=== PATIENT | female | born 1980 | race Caucasian/White ===

== ENCOUNTER → 2020-09-13 | Outpatient (CLI) | payer OTHER ==
[~2020-09-13] MED LIST: BARIATRIC MV-I1 EACH PO; LIPITOR10 MG PO; METFORMIN HCL500 M3 PO; VITAMIN D31250 MC1 PO
== END ==
LOC: LAB 09:52 → PAC 11:09
PROVIDERS: ATTEND Student in an Organized Health Care Education/Training Program
DX: Z01.812 Encounter for preprocedural laboratory examination (principal); Z20.822 Contact with and (suspected) exposure to COVID-19

== ENCOUNTER 2020-09-15 06:22 | Observation (INO) | payer OTHER ==
[2020-09-15] VITALS (9 sets, daily range): BP systolic 126–157; BP diastolic 86–96
[~2020-09-15] VITALS: Ht 162.6 cm; Wt 135.6 kg
--- NOTE | ~2020-09-15 | O ---
[facility] [place] [address] [address] OPERATIVE REPORT Name: CHEL BROWN Room #: 150-2 [facility] IN M.R.#: [id number] Admission: 09/15/20 Attend Phys: Geovani Lawrence MD Discharge: Date of : 80 Report #: [id number] THIS REPORT FOR: cc: Julia Anderson MD, Cora A. MD Joseph, Sigi P. MD ~ DOC #: [id number] Geovani Lawrence MD DATE OF SERVICE: 09/15/2020 PREOPERATIVE DIAGNOSES: 1. Morbid obesity. 2. Type 2 diabetes. 3. Hyperlipidemia. POSTOPERATIVE DIAGNOSES: 1. Morbid obesity. 2. Type 2 diabetes. 3. Hyperlipidemia. OPERATIVE PROCEDURE: Laparoscopic vertical sleeve gastrectomy. OPERATING SURGEON: Geovani Lawrence MD SENIOR J2EE DEVELOPER: Brittney. INDICATIONS FOR THE PROCEDURE: The patient is a 40-year-old female who presents with features of morbid obesity. She was noted to have a weight of 303 pounds with a BMI of 53.7 with the above listed comorbidities. The patient was advised laparoscopic vertical sleeve gastrectomy. The patient showed understanding and agreed to proceed. DESCRIPTION OF PROCEDURE: After explaining to the patient in detail and informed consent was obtained, the patient was identified in the preoperative holding area, the patient was transferred to the operating room and was placed in supine position. Sequential compression devices were placed for DVT prophylaxis. Preoperative antibiotics were given. After induction of anesthesia, the abdomen was prepped and draped in a sterile fashion. Through a left upper quadrant 1 cm incision and using Optiview technique, peritoneal cavity was entered and pneumoperitoneum was created. Thereafter, under direct vision, another 5 mm trocar was placed in the left mid abdomen, another 12 mm trocar was placed in the right mid abdomen, another 5 mm trocar was placed in the right subcostal region and through a 1 cm incision in the epigastrium, a Hayden retractor was introduced and the left lobe of the liver was retracted. Upon initial inspection, I did not see any obvious evidence of hiatal hernia, so I started taking down the gastroepiploic vessels using EnSeal. This was [facility] [address] [place] [address] OPERATIVE REPORT Name: CHEL BROWN Room #: 150-2 ADM IN .R.#: [id number] Admission: 09/15/20 Attend Phys: Geovani Lawrence MD Discharge: Date of : 80 Report #: [id number] continued superiorly. The short gastric vessels were taken down. The gastrophrenic ligament was divided and the angle of His was mobilized distally. The gastroepiploic vessels were taken down up to about 4 cm proximal to the pylorus. At this point, a 36-Macedonian ViSiGi tube was inserted into the stomach and stomach was suctioned out. Stomach was then divided in a vertical fashion with the multiple Endo-CHUCK Follett stapler. Two green loads and multiple gold loads were used to divide the stomach in a vertical fashion to create a loose sleeve around the 36-Macedonian bougie. An air leak test was performed by insufflation of the stomach and by irrigation of fluid along the staple line, there was no leak that was noted. Absolute hemostasis was ensured. The orogastric tube was removed. Approximately 10 mL of lidocaine and Marcaine mix was instilled into the left hemidiaphragm. The sleeve gastrectomy specimen and the Hayden retractor was removed. The 12 mm port site incision was closed with 0 Vicryl for the fascia. Skin was closed with 4-0 Monocryl for all the incisions. Dermabond was applied. The patient was stable at the end of the procedure. The patient was woken up from anesthesia and was transferred to the recovery room in stable condition. Estimated blood loss was approximately 5 mL. CONDITION OF THE PATIENT: Stable. FLUIDS GIVEN: Per anesthesia notes. SPECIMEN SENT: Sleeve gastrectomy specimen. COMPLICATIONS: None. ANESTHESIA: General anesthesia. Geovani Lawrence MD SPJ/KDA By: 0813 [id number] Geovani Lawrence MD /nt
[2020-09-15 07:17] LABS: HEMATOCRIT 40.9 % (37.0-47.0); HEMOGLOBIN 13.4 gm/dL (12.0-15.0); MCH 26.2 pg (26.0-34.0); MCHC 32.8 g/dL (28.0-37.0); MCV 79.9 fL (80.0-100.0); RBC 5.11 mil/uL (4.20-5.00); RDW 15.3 % (10.5-14.5); WBC 10.3 thou/uL (4.0-11.0)
[2020-09-15 07:34] LABS: CALCIUM 9.6 mg/dL (8.5-10.1); CREATININE 0.8 mg/dL (0.6-1.0); POTASSIUM 3.6 mmol/L (3.5-5.1)
[2020-09-15 07:40] LABS: ALBUMIN 3.8 g/dL (3.4-5.0); TOTAL BILIRUBIN 0.7 mg/dL (0.2-1.0); TOTAL PROTEIN 7.7 g/dL (6.4-8.2)
--- NOTE | 2020-09-15 08:44 | EKG ---
[place] [address] [facility] [place] [address] ELECTROCARDIOGRAM REPORT Name: CHEL BROWN Room #: 150-2 ADM IN M.R.#: [id number] Admission: 09/15/20 Attend Phys: Geovani Lawrence MD Discharge: Date of : 80 Report #: [id number] [facility] Test Date: 2020-09-15 Test Time: 07:09:24 Pat Name: CHEL STEPHANIE Department: Room: 150 2 Gender: F Roof Fixer: MARIAH : 1980 Requested By: Geovani Lawrence Order Number: [id number] MD: Krishna Gallagher Measurements Intervals [place] Rate: 91 P: 21 VA: 184 QRS: 37 QRSD: 90 T: 1 QT: 354 QTc: 436 Interpretive Statements Sinus rhythm Low voltage, precordial leads Abnormal R-wave progression, early transition No previous ECG available for comparison Electronically Signed On 09-15-2020 8:44:17 CDT by Krishna Gallagher [email or web address] <ELECTRONICALLY SIGNED> By: Krishna Gallagher MD, [facility] 09/15/20 0844 0709 8 Krishna Gallagher MD, FACC /EPI
--- NOTE | 2020-09-15 18:03 | NUR ---
Admit from OR, s/p laparoscpic sleeve gastrectomy today, transferred to room safely. Admission assessment, history and education done; admission forms signed in OR. Vital signs monitored frequently and charted; WNL. On O2 at 2lpm via nasal cannula- post op comfort. On telemetry; no complains and signs of chest pain, crushing sensation and heaviness. Assisted in ADLs. On nothing per orem, pt informed and aware; mouth swabs provided. Continent of bowel and bladder, able to go to the toilet with standby assist. With R hand- SL; IVF ordered started; on IV antibiotics as well. SCDs in place. Abdminal lap sites with dermabond, C/D/I; no bleeding and drainage noted. No nausea, no vomiting and no abdominal pain. No complains of pain made during assessment. Pt informed that Dr Lawrence wants her to ambulate every 2 hours while awake during surgery day and POD 1- pt said she just wants to rest for a while and will let staff know once she's ready to ambulate. For blood sugar monitoring every 6 hrs. To continue monitoring patient.
[2020-09-16 02:06] LABS: GLYCOHEMOGLOBIN (HGB A1C) 6.4 % (4.8-5.6)
[2020-09-16 03:14] VITALS: BP 107/65
--- NOTE | 2020-09-16 03:34 | NUR ---
ASSUMED PT CARE AT 1900.PT C/O PAIN ON HER ABD MANAGED WITH MED.PT UP WITH SBA WALKED AROUND THE UNIT X2 GOOD ENDURANCE NOTED.PT STATED THAT SHE WANTS TO GET SOME SLEEP.PT CONT ON IVF.LAP SITES DRY AND INTACT.PT SLEEPING ON HER BED AT THIS TIME.CALL LIGHT WITHIN REACH.
[2020-09-16 07:05] VITALS: BP 134/74
[2020-09-16] MEDS ORDERED: HYDROCODONE-ACE15 ML PO (16:20)
[2020-09-16 17:00] VITALS: BP 142/81
[2020-09-16 17:58] VITALS: BP 134/74
--- NOTE | 2020-09-16 19:53 | NUR ---
ASSUMED CARE OF PATIENT AT SHIFT CHANGE. ASSESSMENT CHARTED. MEDICATIONS ADMINISTERED PER EMAR. VSS. PATIENT A&OX4 AND MAKES NEEDS KNOWN. UP SBA W NO ISSUES. ENCOURAGED TO CONTINUE TO AMBULATE WA Q2HRS. PATIENT COMPLIANT. STARTED BARIATRIC DIET THIS DAY AND TOLERATED WELL. LAP SITES X5 C/D/I; BRUISING NOTED AND PROVIDER STATED WAS "NORMAL" PATIENT CLEARED TO DISCHARGE THIS DAY; SENT HOME WITH DISCHARGE INSTRUCTIONS AND EDUCATION. VOICED NO NEEDS.
--- NOTE | 2020-09-17 16:06 | PATH ---
[facility] [address] [place] [address] PATHOLOGY RPT PROCEDURE Name: CHEL BROWN Room #: 449-I [facility] Saturnino Chapa#: [id number] Admission: 09/15/20 Date of : 80 Discharge: 09/16/20 Report #: [id number] Path Case #: [id number] [facility] Accession Number: [id number] . 01 Material submitted: . gastrointestinal site - GASTRIC SLEEVE . 01 Clinical history: . LAPAROSCOPIC SLEEVE GASTRECTOMY (+++) MORBID OBESITY . 02 Diagnosis: Gastric sleeve, laparoscopic sleeve gastrectomy: - No diagnostic abnormalities present; history of morbid obesity. . (IUV:mml; 09/17/2020) QLM 09/17/2020 1418 Local . 02 Electronically signed: . Isabel Callejas MD, Pathologist NPI- [id number] . 01 Gross description: . The specimen is received in formalin, labeled "Esteban Chel, gastric sleeve" as a 18 x 3.7 x 3.1 cm partial gastrectomy specimen. The serosal, mucosal and cut surfaces are focally congested but without obvious lesions. The stapled margin is inked and perpendicular sections submitted in cassette A1 with random sections in cassette A2. ([facility]; 09/15/2020) RAFA/RAFA 09/15/2020 2318 Local . 02 Pathologist provided ICD-10: E66.01 . 02 CPT . 832701 Specimen Comment: A courtesy copy of this report has been sent to [phone] Specimen Comment: [id number] Specimen Comment: Report sent to / DR GAY Performed at: [address] [id number] MD Chandu Blair MD Phone: [phone] Performed at: [address] [id number] [address] [address] PATHOLOGY RPT PROCEDURE Name: CHEL BROWN Room #: 449-I [facility] Chapa#: [id number] Admission: 09/15/20 Date of : 80 Discharge: 09/16/20 Report #: [id number] Path Case #: [id number] MD Isabel Callejas MD Phone: [phone]
== END 2020-09-16 19:35 | disposition home or self-care (01) ==
LOC: 4W 06:22 → TBA 06:22 → PRE 10:47 → 4W 14:28
PROVIDERS: ADMIT Surgery; ATTEND Surgery
DX: E66.01 Morbid (severe) obesity due to excess calories (principal); E11.9 Type 2 diabetes mellitus without complications; E78.5 Hyperlipidemia, unspecified; Z68.43 Body mass index [BMI] 50.0-59.9, adult
CPT/HCPCS: 10047; 50010; 50101; 50222; 50386; 50555; 50558; 50739; 50740; 51489; 52265; 52266; 53307; 54022; 54118; 55326; 56462; 56525; 56526; 56531; 57092; 58574; 58587; 62110; 62900; 70005